=== PATIENT | male | born 1985 | race Caucasian/White ===

== ENCOUNTER 2019-05-05 11:48 | Emergency (ER) | payer SELFPAY ==
[2019-05-05 12:29] VITALS: BP 107/41; PULSE 92; TEMP 98; BMI 22.1
== END 2019-05-05 13:09 | disposition left against medical advice (07) ==
LOC: JERFT 11:48
DX: Z53.21 Procedure and treatment not carried out due to patient leaving prior to being seen by health care provider (principal)
CPT/HCPCS: 99281-25

== ENCOUNTER 2021-10-23 04:24 | Day surgery (SDC) | payer OTHER ==
[2021-10-19 13:40] VITALS: BMI 25.7
[2021-10-23] MEDS ORDERED: MIDAZOLAM HCL 2 MG/2 ML SINGLE DOSE VIAL ONE (14:33)
[2021-10-23] MEDS ORDERED: PROPOFOL 20 ML ONE (14:33)
[2021-10-23 16:35] VITALS: TEMP 97.9
[2021-10-23 16:40] VITALS: BP 107/73; PULSE 81
== END 2021-10-23 16:00 | disposition home or self-care (01) ==
LOC: JASU-SURG 04:24
PROVIDERS: ATTEND Urology
PROC: 0TF3XZZ Fragmentation in Right Kidney Pelvis, External Approach (ICD-10-PCS; principal; 2021-10-23 12:00)
DX: N20.0 Calculus of kidney (principal)